=== PATIENT | male | born 1965 | race Caucasian/White ===

== ENCOUNTER 2023-09-22 16:39 | Day surgery (SDC) | payer OTHER ==
[~2023-09-22 16:39] MED LIST: Dexamethasone 4 MG/ML 5 ML MDV ONE; Ketorolac 30 MG/ML SDV ONE; Lidocaine 1% 6 ML ONE; Metoclopramide 10 MG/2 ML SDV ONE; Midazolam 1 MG/ML 2 ML SDV ONE; Ondansetron 4 MG/2 ML SDV ONE; Propofol 200 MG/20 ML SDV ONE; Rocuronium 50 MG/5 ML Vial ONE; Succinylcholine 200 MG/10 ML MDV ONE; fentaNYL 250 MCG/5 ML SDV ONE
[2023-09-22] MEDS ORDERED: Lactated Ringers 1,000 ML ONE ×2 (16:48→17:40)
[2023-09-22] MEDS ORDERED: Neostigmine Methylsulfate 10 MG/10 ML MDV ONE (17:03)
[2023-09-22] MEDS ORDERED: Lidocaine 1% 20 ML MDV ONE (17:11)
[2023-09-22] MEDS ORDERED: Bupivacaine 0.5% 30 ML SDV ONE (17:11)
[2023-09-22] MEDS ORDERED: cefTRIAXone 2 GM Vial ONE (17:12)
[2023-09-22] MEDS ORDERED: Dexmedetomidine 200 MCG/2 ML SDV ONE (17:43)
[2023-09-22] MEDS ORDERED: HYDROmorphone 0.5 MG/0.5 ML Syringe IVPUSH PRN (18:12)
[2023-09-22] MEDS ORDERED: fentaNYL 100 MCG/2 ML SDV IVPUSH PRN (18:12)
[2023-09-22] MEDS ORDERED: Acetaminophen/HYDROcodone 325-5 MG Tab PO PRN (19:29)
[2023-09-22] MEDS ORDERED: Lactated Ringers 1,000 ML IV SCH (21:15)
== END 2023-09-22 20:45 | disposition home or self-care (01) ==
LOC: JD.ED 16:39 → JD.SDS 17:07
PROVIDERS: ATTEND Surgery
DX: K35.30 Acute appendicitis with localized peritonitis, without perforation or gangrene (principal); Z79.52 Long term (current) use of systemic steroids; Z79.1 Long term (current) use of non-steroidal anti-inflammatories (NSAID); Z79.899 Other long term (current) drug therapy
CPT/HCPCS: 00840; 99140; A9270-GY; J0330; J1100; J1885; J2250; J2405; J2704; J2710; J2765; J3010; J3490; J7120